=== PATIENT | female | born 1980 | race African-American/Black ===

== ENCOUNTER 2020-12-23 19:13 | Emergency (ER) | payer OTHER ==
[~2020-12-23] VITALS: Ht 167.6 cm; Wt 91.0 kg
[2020-12-24] MEDS ORDERED: MORPHINE SULFATE 4 MG/ML CPJ (NOT FOR IM USE) IV ONE (02:00)
[2020-12-24] MEDS ORDERED: ONDANSETRON 4MG ODT PO ONE (02:30)
[2020-12-24] MEDS ORDERED: ACETAMINOPHEN 325MG TABLET PO ONE (02:30)
[2020-12-24 02:46] LABS: CHLORIDE 105 mEq/L (98-107)
[2020-12-24 02:57] LABS: B-HCG QUANTITATIVE < 1 mIU/mL (<3)
[2020-12-24 03:15] LABS: BASOPHILS % 2.3 % (0.0-2.0); EOSINOPHILS % 0.1 % (0.0-5.0); HEMATOCRIT. 35.2 % (36.0-48.0); HEMOGLOBIN. 11.2 g/dL (12.0-16.0); LYMPHOCYTES % 20.8 % (20.0-50.0); MEAN CORPUSCULAR HEMOGLOBIN 26.3 pg (28.0-32.0); MEAN CORPUSCULAR VOLUME 82.8 fL (81.0-99.0); MEAN PLATELET VOLUME 7.5 fl (7.4-10.4); MONOCYTES % 6.2 % (2.0-8.0); NEUTROPHILS % 70.6 % (40.0-76.0); PLATELET 392 x1000/uL (130-400); RED BLOOD CELL COUNT 4.24 mill/uL (4.2-5.4); RED CELL DISTRIBUTION WIDTH 16.4 % (11.6-14.6)
[2020-12-24] MEDS ORDERED: IBUPROFEN 800MG TABLET PO ONE (06:00)
[2020-12-24 06:18] VITALS: BP 140/83
== END 2020-12-24 06:21 | disposition home or self-care (01) ==
LOC: ER 19:13
DX: N93.9 Abnormal uterine and vaginal bleeding, unspecified (principal); M54.5 Low back pain; Z88.0 Allergy status to penicillin
CPT/HCPCS: 36415; 76830; 76856; 80053; 84702; 85025; 86850; 86900; 86901; 99284; Q0162